=== PATIENT | male | born 1960 | race Caucasian/White ===

== ENCOUNTER 2017-09-23 21:17 | Emergency (ER) | payer OTHER ==
[2017-09-24] MEDS: DIPHTH/TET/ACEL PERTUSS (ADULT) 0.5 ML VIAL IM* (00:11)
[2017-09-24] MEDS: BACITRACIN 0.5%/ZINC 28.35 GM OINT TOP (00:11)
== END 2017-09-24 01:48 | disposition home or self-care (01) ==
LOC: FTE 09-24 01:48
DX: S71.151A Open bite, right thigh, initial encounter (principal); W54.0XXA Bitten by dog, initial encounter; Y92.9 Unspecified place or not applicable; Z23 Encounter for immunization
CPT/HCPCS: 90471; 90715; 99283-25